=== PATIENT | male | born 1970 | race Two or more races ===

== ENCOUNTER 2022-02-27 23:24 | Emergency (ER) | payer OTHER ==
[~2022-02-27] VITALS: Ht 170.2 cm; Wt 149.0 kg
[2022-02-27 23:28] VITALS: BP 182/85
[2022-02-27] MEDS ORDERED: CLINDAMYCIN HCL 150 MG CAPSULE. PO STA (23:51)
[2022-02-27] MEDS ORDERED: ACETAMINOPHEN 500 MG TABLET PO STA (23:52)
[2022-02-27] MEDS ORDERED: CLIN150C16 PO (23:58)
--- NOTE | 2022-02-27 23:58 | PHYS DOC ---
General Adult EDM: Chief Complaint: TOE PROBLEM HPI: HPI: Patient is a 51 year old M who presents with pain and redness to his L big toe. Patient has an ingrown toenail to his left big toe which has been giving him trouble for the past week, went to see his primary doctor and was prescribed Bactrim and instructed to trim the nail back at home. Patient's attempted to do so and now patient's pain is worse and associated with some mild redness to the nail fold. Patient denies any fevers or chills. Noted a small amount of pus draining from the edge of the nail fold. Review of Systems: Review of Systems: Constitutional: Denies fever or chills. [] Eyes: Denies change in visual acuity. [] HENT: Denies nasal congestion or sore throat. [] Respiratory: Denies cough or shortness of breath. [] Cardiovascular: Denies chest pain or edema. [] GI: Denies abdominal pain, nausea, vomiting, bloody stools or diarrhea. [] : Denies dysuria. [] Musculoskeletal: Denies back pain or joint pain. [] Integument: Denies rash. [] Neurologic: Denies headache, focal weakness or sensory changes. [] Endocrine: Denies polyuria or polydipsia. [] Lymphatic: Denies swollen glands. [] Psychiatric: Denies depression or anxiety. [] Heart Score: C/O Chest Pain: No Risk Factors: Risk Factors: DM, Current or recent (<one month) smoker, HTN, HLP, family history of CAD, obesity. Risk Scores: Score 0 - 3: 2.5% MACE over next 6 weeks - Discharge Home Score 4 - 6: 20.3% MACE over next 6 weeks - Admit for Clinical Observation Score 7 - 10: 72.7% MACE over next 6 weeks - Early Invasive Strategies Current Medications: Current Medications Medications (Trade) Dose Ordered Sig/Haile Start Time Stop Time Status Last Admin Dose Admin Acetaminophen (Tylenol) 1,000 mg 1X STAT 02/27/22 23:52 02/27/22 23:53 UNV Clindamycin HCl (Cleocin) 450 mg 1X STAT 02/27/22 23:51 02/27/22 23:52 UNV Allergies: Allergies: Allergies Coded Allergies Type Severity Reaction Last Updated Verified No Known Drug Allergies 02/27/22 No Physical Exam: PE: Constitutional: Well developed, well nourished, no acute distress, non-toxic appearance. [] HENT: Normocephalic, atraumatic, bilateral external ears normal, oropharynx moist, no oral exudates, nose normal. [] Eyes: PERRLA, EOMI, conjunctiva normal, no discharge. [] Neck: Normal range of motion, no tenderness, supple, no stridor. [] Cardiovascular:Heart rate regular rhythm, no murmur [] Lungs & Thorax: Bilateral breath sounds clear to auscultation [] Abdomen: Bowel sounds normal, soft, no tenderness, no masses, no pulsatile masses. [] Skin: Warm, dry, no erythema, no rash. [] Back: No tenderness, no CVA tenderness. [] Extremities: ttp and redness to medial nail fold of L big toe. No fluctuance appreciated with palpation of medial toe. Neurologic: Alert and oriented X 3, normal motor function, normal sensory function, no focal deficits noted. [] Psychologic: Affect normal, judgement normal, mood normal. [] EKG: EKG: [] Radiology/Procedures: Radiology/Procedures: [] Course & Med Decision Making: Course & Med Decision Making Patient with cellulitis versus paronychia that is already draining. Will change from Bactrim to clindamycin for broader coverage, recommend warm compresses or warm soaks several times a day and to follow-up closely with his primary doctor for podiatry referral. Patient already taking ibuprofen, last dose was 2 hours ago, will give him a dose of Tylenol prior to discharge and recommend he take T ylenol and Motrin together for pain at home. Carissa Disclaimer: Carissa Disclaimer: This electronic medical record was generated, in whole or in part, using a voice recognition dictation system. Departure Departure Impression: Primary Impression: Cellulitis of toe of left foot Disposition: HOME / SELF CARE / HOMELESS Condition: GOOD Referrals: JASON MICHAEL (PCP) Scripts Clindamycin Hcl (CLINDAMYCIN HCL) 150 Mg Capsule 3 CAP PO TID for 7 Days, #63 CAP Prov: BRUNILDA JANSEN MD 02/27/22 BRUNILDA JANSEN MD February 27, 2022 23:58
== END 2022-02-28 00:15 | disposition home or self-care (01) ==
LOC: ER 23:24
DX: L03.032 Cellulitis of left toe (principal)
CPT/HCPCS: 99283